=== PATIENT | female | born 1960 | race Caucasian/White ===

== ENCOUNTER 2019-07-31 15:52 | Emergency (ER) | payer SELFPAY ==
[~2019-07-31] VITALS: Ht 154.9 cm; Wt 63.6 kg
[2019-07-31 15:54] VITALS: BP 156/99
== END 2019-07-31 18:40 | disposition left against medical advice (07) ==
LOC: EMS 15:56
DX: R04.0 Epistaxis (principal); Z53.21 Procedure and treatment not carried out due to patient leaving prior to being seen by health care provider